=== PATIENT | female | born 1990 | race Caucasian/White ===

== ENCOUNTER 2016-11-21 16:35 | Emergency (ER) | payer OTHER ==
[2016-11-21 16:49] VITALS: BP 158/97; PULSE 99; RESP 16; TEMP 98.6; O2SAT 97
[2016-11-21] MEDS ORDERED: OSELTAMIVIR PHOSPHATE 75 MG CAP PO ONE (18:22)
[2016-11-21] MEDS ORDERED: IBUPROFEN 800 MG TAB PO ONE (18:22)
--- NOTE | 2016-11-21 18:27 | UCPHY ---
H & P Time Seen by Provider: 11/21/16 17:30 Patient Type: New HPI/ROS: HPI Flu-like symptoms. 26-year-old female by private vehicle. She reports onset of flu-like symptoms which include fever, dry cough, nasal congestion, sinus congestion, muscle aches and joint aches, sore throat onset about 2 days ago. ROS: Constitutional: As above. Eyes: No discharge. No changes in vision. ENT: As above. Respiratory: As above. No shortness of breath. Cardiac: No chest pain, no palpitations. Gastrointestinal: No abdominal pain, no vomiting, no diarrhea. Genitourinary: No hematuria. No dysuria or increased frequency with urination. Musculoskeletal: As above. Skin: No rashes. Neurological: No headache. No focal weakness or altered sensation. Past medical history: Asthma. Social history: Smokes. No alcohol. Here by herself. Physical Exam: General Appearance: Alert, no distress. This patient is responding to questions appropriately and in full sentences. This patient appears well- hydrated and well-nourished. Eyes: Pupils equal and round no pallor or injection. No lid edema, erythema or injection. ENT, Mouth: Mucous membranes are moist. The pharyngeal tissues are unremarkable. No edema or swelling. No asymmetry suggestive of abscess. No erythema or exudates. Nasal congestion with clear rhinorrhea. Respiratory: There are no retractions, lungs are clear to auscultation with good air movement bilaterally. Intermittent dry cough. No tachypnea. Cardiovascular: Regular rate and rhythm. No murmur. Neurological: Motor sensory function is grossly intact. Cranial nerves are normal. Gait is normal. Skin: Warm and dry, no rashes. Musculoskeletal: Neck is supple and nontender. No pain on flexion of the neck. Extremities are symmetrical. All joints range without pain or impingement. Psychiatric: No agitation. No depression. Database: EKG: Imaging: Chest x-ray PA and lateral; the cardiac mediastinal silhouette is unremarkable. No evidence of infiltrate or pneumothorax. Mild bronchitis. No other acute cardiopulmonary disease process noted. Interpreted by me. Procedures: Emergency department course: Patient presents with symptoms of suggestive of influenza. Onset she reports less than 2 days ago. I discussed treatment with Tamiflu. She consents. Was given 75 mg of Tamiflu at urgent care and 600 mg of ibuprofen. Results of her chest x-ray were discussed with her. Her vital signs have been reviewed. She feels comfortable going home and I feel she is safe for discharge. I will prescribe Tamiflu as well as high-dose ibuprofen. Supportive care and hydration discussed with her. All of her questions were answered. She was discharged in good condition. Differential Diagnosis: The differential diagnosis on this patient includes but is not limited to influenza, viral syndrome. Pneumonia, serious bacterial infection unlikely. This represents a partial list of diagnoses considered. These considerations are based on history, physical exam, past history, reassessment and diagnostic testing. Smoking Status: Current every day smoker Constitutional: Initial Vital Signs Temperature (C) 37 C 11/21/16 16:43 Heart Rate 99 11/21/16 16:43 Respiratory Rate 16 11/21/16 16:43 Blood Pressure 158/97 H 11/21/16 16:43 O2 Sat (%) 97 11/21/16 16:43 O2 Delivery Mode Room Air Allergies/Adverse Reactions: No Known Allergies Allergy (Verified 11/21/16 16:48) Home Medications: Medication Instructions Recorded Fish Oil 11/21/16 Herbals/Supplements -Info Only 11/21/16 Oseltamivir Phosphate [Tamiflu 75 75 mg PO BID #10 cap 11/21/16 mg (RX)] Medical Decision Making - Data Points Laboratory Results: 11/21/16 16:50 Influenza Typ A,B (DFA) NEGATIVE FOR FLU (NEGATIVE) Departure - Departure Disposition: Home, Routine, Self-Care Clinical Impression: Influenza Condition: Good Instructions: Influenza (ED) Additional Instructions: Read and follow provided instructions. Follow-up with your primary care physician in 1-2 days for re-evaluation. Take medication as prescribed. Ibuprofen dosin mg every 6 hours with meals for the next 3 days only. Return to the emergency department for worsening symptoms, high fever, worsening cough or other serious concerns. Referrals: NONE *PRIMARY CARE P,. [Primary Care Provider] - As per Instructions Prescriptions: Oseltamivir Phosphate [Tamiflu 75 mg (RX)] 75 mg PO BID #10 cap - PQRS PQRS Measurement: Not applicable.
[2016-11-21] MEDS ORDERED: IBUPROFEN 600 MG TAB PO ONE (18:56)
== END 2016-11-21 19:01 | disposition home or self-care (01) ==
LOC: CED 16:35
DX: R50.9 Fever, unspecified (principal); R05 Cough; R09.81 Nasal congestion; M79.1 Myalgia; R07.0 Pain in throat; J45.909 Unspecified asthma, uncomplicated; Z72.0 Tobacco use
CPT/HCPCS: 71020-PO; 87400-PO; G0463-PO